=== PATIENT | male | born 1990 ===

== ENCOUNTER 2016-08-17 13:49 | Emergency (ER) | payer MEDICAID ==
[2016-08-17 15:02] VITALS: BP 115/62
[2016-08-17] MEDS ORDERED: Ibuprofen TAB* 600 MG PO ONE ×2 (15:21)
--- NOTE | 2016-08-17 16:13 | RAD ---
INDICATION: Right knee injury. TECHNIQUE: 4 views of the right knee were obtained. FINDINGS: The bones are in normal alignment. There is a large joint effusion present. On the lateral view there appears to be a impaction fracture of the mid aspect of one of the femoral condyles. No other fractures are seen. IMPRESSION: LARGE JOINT EFFUSION AND PROBABLE IMPACTION FRACTURE OF ONE OF THE FEMORAL CONDYLE SEEN ON THE LATERAL VIEW. RECOMMEND MR IMAGING FOR FURTHER EVALUATION.
--- NOTE | 2016-08-17 16:15 | UC ---
Knee Pain HPI - HPI Summary HPI Summary: twisted right knee yesterday swelled immediately now ajay - History of Current Complaint Chief Complaint: UCLowerExtremity Stated Complaint: RIGHT KNEE INJURY Time Seen by Provider: 08/17/16 15:15 Hx Obtained From: Patient Onset/Duration: Sudden Onset Severity Initially: Moderate Severity Currently: Moderate Pain Intensity: 4 Pain Scale Used: 0-10 Numeric Character: Sharp, Aching, Throbbing Aggravating Factor(s): Movement, Weight Bearing Alleviating Factor(s): Rest Associated Signs And Symptoms: Positive: Swelling Able to Bear Weight: Yes - with limp - Allergies/Home Medications Allergies/Adverse Reactions: Allergies Allergy/AdvReac Type Severity Reaction Status Date / Time No Known Allergies Allergy Verified 08/17/16 15:02 PMH/Surg Hx/FS Hx/Imm Hx Previously Healthy: Yes - Surgical History Surgical History: None - Family History Known Family History: Positive: Hypertension - Social History Alcohol Use: Weekly Substance Use Type: None Smoking Status (MU): Never Smoked Tobacco Review of Systems Constitutional: Negative Skin: Negative Eyes: Negative ENT: Negative Respiratory: Negative Cardiovascular: Negative Gastrointestinal: Negative Genitourinary: Negative Motor: Negative Neurovascular: Negative Musculoskeletal: Arthralgia Neurological: Negative Psychological: Negative All Other Systems Reviewed And Are Negative: Yes Physical Exam Triage Information Reviewed: Yes Appearance: Well-Appearing, No Pain Distress, Well-Nourished Vital Signs: Initial Vital Signs Temp 98.1 F 08/17/16 14:55 Pulse 60 08/17/16 14:55 Resp 18 08/17/16 14:55 BP 115/62 08/17/16 14:55 Pulse Ox 100 08/17/16 14:55 Vital Signs Reviewed: Yes Eyes: Positive: Conjunctiva Clear ENT: Positive: Hearing grossly normal. Negative: Nasal congestion, Nasal drainage, Trismus, Muffled/hoarse voice Neck: Positive: Supple, Nontender Respiratory: Positive: Lungs clear, Normal breath sounds, No respiratory distress Cardiovascular: Positive: RRR, No Murmur Bowel Sounds: Positive: Present Musculoskeletal: Positive: ROM Limited @ - right knee, Edema @ - right knee effusion Neurological: Positive: Alert, Muscle Tone Normal Psychological: Positive: Normal Response To Family, Age Appropriate Behavior Skin Exam: Normal Knee Pain Course/Dx - Differential Dx/Diagnosis Provider Diagnoses: internal derangement right knee Discharge - Discharge Plan Condition: Stable Disposition: HOME Prescriptions: HYDROcodone/ACETAMIN 5-325 MG* [[place] 5-325 TAB*] 1 tab PO Q4H PRN #15 tab MDD 2 PRN Reason: Pain Ibuprofen TAB* [Motrin TAB*] 600 mg PO QID PRN #40 tab PRN Reason: Pain Patient Education Materials: Swollen Knee Joint (ED) Referrals: Waldemar Argueta MD [Medical Doctor] - As Soon As Possible Additional Instructions: I SUSPECT AN INTERNAL DERANGEMENT OF YOUR RIGHT KNEE REST ELEVATE ICE AT LEAST TWICE DAILY KNEE IMMOBILIZER CRUTCHES Images Front/Back of Body, Lg ([place]): 1 - tender medial joint line. hurts to fully extend
== END 2016-08-17 16:34 | disposition home or self-care (01) ==
LOC: UCCORT 13:49
DX: S89.91XA Unspecified injury of right lower leg, initial encounter (principal); X50.1XXA Overexertion from prolonged static or awkward postures, initial encounter; Y93.9 Activity, unspecified; Y92.9 Unspecified place or not applicable
CPT/HCPCS: 99203; A9270-GY; G0463